=== PATIENT | female | born 1995 | race Two or more races ===

== ENCOUNTER 2020-11-12 21:32 | Emergency (ER) | payer OTHER, MEDICAID ==
[2020-11-12 22:10] LABS: BASOPHILS % (AUTO) 0.3 %; EOSINOPHILS # (AUTO) 0.2 10^3/uL (0.0-0.7); EOSINOPHILS % (AUTO) 1.6 %; HCT - HEMATOCRIT 38.6 % (37.0-47.0); HGB - HEMOGLOBIN 12.9 g/dL (12.0-16.0); LYMPHOCYTES # (AUTO) 2.8 10^3/uL (1.5-3.5); LYMPHOCYTES % (AUTO) 24.6 %; MEAN CORPUSCULAR HGB CONC 33.4 g/dL (32.0-36.0); MEAN CORPUSCULAR VOLUME 92.8 fL (81.0-99.0); MEAN PLATELET VOLUME 8.6 fL (7.9-10.8); MONOCYTES # (AUTO) 0.6 10^3/uL (0.0-1.0); MONOCYTES % (AUTO) 4.9 %; NEUTROPHILS # (AUTO) 7.7 10^3/uL (1.5-6.6); NEUTROPHILS % (AUTO) 68.2 %; PLT - PLATELET COUNT 250 10^3/uL (130-450); RED BLOOD COUNT 4.16 10^6/uL (4.20-5.40); WHITE BLOOD COUNT 11.3 x10^3/uL (4.8-10.8)
[2020-11-12 22:23] LABS: ALBUMIN 4.3 g/dL (3.2-5.5); ALBUMIN/GLOBULIN RATIO 1.5 (1.0-2.2); BILIRUBIN,TOTAL 0.6 mg/dL (0.2-1.0); CALCIUM 9.5 mg/dL (8.5-10.3); CREATININE 0.6 mg/dL (0.4-1.0); POTASSIUM 3.8 mmol/L (3.5-5.0); TOTAL PROTEIN 7.2 g/dL (6.7-8.2)
[2020-11-13 00:55] LABS: BILIRUBIN,URINE NEGATIVE (NEGATIVE); GLUCOSE, URINE (UA) NEGATIVE (NEGATIVE); KETONES,URINE (UA) NEGATIVE (NEGATIVE); LEUKOCYTE ESTERASE, URINE NEGATIVE (NEGATIVE); NITRITE,URINE NEGATIVE (NEGATIVE); OCCULT BLOOD,URINE NEGATIVE (NEGATIVE); PROTEIN,URINE NEGATIVE (NEGATIVE); UROBILINOGEN,URINE 0.2 (NORMAL) E.U./dL (NORMAL)
[2020-11-13 01:02] LABS: CLARITY,URINE CLEAR (CLEAR); RBC,URINE 0-5 /HPF (0-5); WBC,URINE 0-3 /HPF (0-5)
[2020-11-13 01:03] LABS: BACTERIA,URINE Rare /HPF (None Seen); SQUAMOUS EPITHELIAL CELL,UR FEW Squamous (<= Few)
[2020-11-13 02:27] VITALS: BP 118/83
--- NOTE | 2020-11-13 06:58 | ED Physician Documentation ---
History of Present Illness - Stated complaint Stated Complaint: BLEED/10 WEEKS - Chief complaint Chief Complaint: Abd Pain - History obtained from History obtained from: Patient - Additonal information Additional information: 25-year-old woman, history of type 2 diabetes, at 10 weeks gestational age, presents with brownish discharge today and lower abdominal twinging. She is O+ blood type. Denies urinary symptoms, back pain, fever chills. Review of Systems Ten Systems: 10 systems reviewed and negative Constitutional: denies: Fever, Chills, Myalgias GI: reports: Abdominal Pain, Nausea. denies: Vomiting : denies: Dysuria, Hesitancy Musculoskeletal: denies: Back pain PD PAST MEDICAL HISTORY - Allergies Allergies/Adverse Reactions: Allergies Allergy/AdvReac Type Severity Reaction Status Date / Time No Known Drug Allergies Allergy Verified 11/12/20 21:44 - Social History Does the pt smoke?: No Smoking Status: Never smoker PD ED PE NORMAL - Vitals Vital signs reviewed: Yes - General General: Alert and oriented X 3, No acute distress, Well developed/nourished - HEENT HEENT: Atraumatic, PERRL, EOMI - Neck Neck: Supple, no meningeal sign - Cardiac Cardiac: RRR - Respiratory Respiratory: No respiratory distress, Clear bilaterally - Abdomen Abdomen: Non tender, Non distended - Female Female : 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 Mild erythema to endocervix. Cervix closed. No CMT or adnexal tenderness) - Back Back: No CVA TTP - Derm Derm: Normal color, Warm and dry - Extremities Extremities: No deformity - Neuro Neuro: Alert and oriented X 3 - Psych Psych: Normal mood, Normal affect Results - Vitals Vitals: Vital Signs - 24 hr 11/12/20 11/13/20 21:40 02:25 Temperature 36.0 C L 36.2 C L Heart Rate 93 83 Respiratory 16 16 Rate Blood Pressure 135/84 H 118/83 H O2 Saturation 100 100 Oxygen O2 Source Room air - Labs Labs: Laboratory Tests 11/12/20 11/12/20 11/12/20 22:03 22:03 22:03 WBC 11.3 H RBC 4.16 L Hgb 12.9 Hct 38.6 MCV 92.8 MCH 31.0 MCHC 33.4 RDW 12.0 Plt Count 250 MPV 8.6 Neut # (Auto) 7.7 H Lymph # (Auto) 2.8 [place] # (Auto) 0.6 Eos # (Auto) 0.2 Baso # (Auto) 0.0 Absolute Nucleated RBC 0.00 Nucleated RBC % 0.0 Sodium 136 Potassium 3.8 Chloride 103 Carbon Dioxide 25 Anion Gap 8.0 BUN 9 Creatinine 0.6 Estimated GFR (MDRD) 123 Glucose 126 H Calcium 9.5 Total Bilirubin 0.6 AST 20 ALT 34 Alkaline Phosphatase 50 Total Protein 7.2 Albumin 4.3 Globulin 2.9 Albumin/Globulin Ratio 1.5 Lipase 26 HCG, Quant 004703.00 Urine Color Urine Clarity Urine pH Ur Specific [place] Urine Protein Urine Glucose (UA) Urine Ketones Urine Occult Blood Urine Nitrite Urine Bilirubin Urine Urobilinogen Ur Leukocyte Esterase Urine RBC Urine WBC Ur Squamous Epith Cells Urine Bacteria Urine Culture Comments 11/13/20 00:28 WBC RBC Hgb Hct MCV MCH MCHC RDW Plt Count MPV Neut # (Auto) Lymph # (Auto) [place] # (Auto) Eos # (Auto) Baso # (Auto) Absolute Nucleated RBC Nucleated RBC % Sodium Potassium Chloride Carbon Dioxide Anion Gap BUN Creatinine Estimated GFR (MDRD) Glucose Calcium Total Bilirubin AST ALT Alkaline Phosphatase Total Protein Albumin Globulin Albumin/Globulin Ratio Lipase HCG, Quant Urine Color YELLOW Urine Clarity CLEAR Urine pH 6.0 Ur Specific [place] 1.025 Urine Protein NEGATIVE Urine Glucose (UA) NEGATIVE Urine Ketones NEGATIVE Urine Occult Blood NEGATIVE Urine Nitrite NEGATIVE Urine Bilirubin NEGATIVE Urine Urobilinogen 0.2 (NORMAL) Ur Leukocyte Esterase NEGATIVE Urine RBC 0-5 Urine WBC 0-3 Ur Squamous Epith Cells FEW Squamous Urine Bacteria Rare Urine Culture Comments NOT INDICATED PD MEDICAL DECISION MAKING - ED course ED course: 25-year-old woman presents with brownish discharge that she was concerned was blood. She had a normal ultrasound and normal physical exam with closed cervix. Reassurance given and return precautions given. Patient will follow up with her LABORATORY CUREMAN. Departure - Departure Disposition: 01 Home, Self Care Clinical Impression: Vaginal spotting Condition: Good Instructions: Bleeding Early Preg Comments: You were seen in the emergency department for evaluation of brownish discharge in early . Your lab work, urine, and ultrasound were normal. You should follow-up with your LABORATORY CUREMAN. Return to the emergency department if you have any new or worsening symptoms or other concerns. Discharge Date/Time: 11/13/20 02:27
--- NOTE | 2020-11-13 08:37 | Ultrasound Report ---
PROCEDURE: OB First Trimester INDICATIONS: VB IN FIRST TRIMESTER OUTSIDE/PRIOR DATING DATA: Last menstrual period (LMP): 09/01/2020. LMP-based estimated date of delivery (KASSY): 06/08/2021. First dating scan (date and location): 11/12/2020, this study. Estimated date of delivery (KASSY) from first dating scan: 06/09/2021, +/- 5 days. The below data below was generated using the above KASSY of 06/09/2021 TECHNIQUE: Real-time scanning was performed of the fetus and maternal pelvic organs, with image documentation. COMPARISON: None FINDINGS: There is a single living intrauterine gestation with crown-rump length of 3.3 cm which cor relates with a gestational age of 10 weeks 1 day, +/- 5 days. cardiac activity at 176 bpm is ob served. Embryo: No perigestational hemorrhage. Heart rate: 1 76 bpm. Measurement variability in dating: +/- 4 weeks by LMP, +/- 7 days by mean sac diameter (use before 6 weeks gestation if crown-rump length not able to be measured), +/- 5 days by crown-rump length (6-12 weeks gestation). Maternal organs: Ovaries corpus luteum cyst on the right.. IMPRESSION: Living intrauterine gestation, 10 week 1 day gestational age with delivery date projected to be cente red on 06/09/2021. A definite source of vaginal bleeding is not identified. The patient declined trans vaginal scanning which reduces quality of visualization for detection of small perigestational hemorr jose. Reviewed by: Sukumar Chatterjee MD on 11/13/2020 8:36 AM PDT Approved by: Sukumar Chatterjee MD on 11/13/2020 8:36 AM PDT Station ID: [id number]
== END 2020-11-13 02:27 | disposition home or self-care (01) ==
LOC: ED 21:32
DX: O26.851 Spotting complicating pregnancy, first trimester (principal); Z3A.10 10 weeks gestation of pregnancy
CPT/HCPCS: 36415; 80053; 81001; 83690; 84702; 85025; 87086; 99282; 99284

== ENCOUNTER 2020-11-28 18:47 | Emergency (ER) | payer OTHER, MEDICAID ==
[2020-11-28 19:19] LABS: BASOPHILS % (AUTO) 0.2 %; EOSINOPHILS # (AUTO) 0.1 10^3/uL (0.0-0.7); EOSINOPHILS % (AUTO) 1.2 %; HGB - HEMOGLOBIN 13.3 g/dL (12.0-16.0); LYMPHOCYTES # (AUTO) 2.9 10^3/uL (1.5-3.5); LYMPHOCYTES % (AUTO) 24.4 %; MEAN CORPUSCULAR HGB CONC 34.1 g/dL (32.0-36.0); MEAN CORPUSCULAR VOLUME 90.9 fL (81.0-99.0); MONOCYTES # (AUTO) 0.5 10^3/uL (0.0-1.0); MONOCYTES % (AUTO) 4.2 %; NEUTROPHILS # (AUTO) 8.3 10^3/uL (1.5-6.6); NEUTROPHILS % (AUTO) 69.7 %; PLT - PLATELET COUNT 261 10^3/uL (130-450); RED BLOOD COUNT 4.29 10^6/uL (4.20-5.40); RED CELL DISTRIBUTION WIDTH 11.9 % (12.0-15.0); WHITE BLOOD COUNT 11.8 x10^3/uL (4.8-10.8)
[2020-11-28 19:26] LABS: CALCIUM 9.2 mg/dL (8.5-10.3); CREATININE 0.5 mg/dL (0.4-1.0); POTASSIUM 3.2 mmol/L (3.5-5.0)
[2020-11-28 19:27] LABS: BILIRUBIN,URINE NEGATIVE (NEGATIVE); GLUCOSE, URINE (UA) 250 mg/dL (NEGATIVE); KETONES,URINE (UA) TRACE mg/dL (NEGATIVE); LEUKOCYTE ESTERASE, URINE NEGATIVE (NEGATIVE); NITRITE,URINE NEGATIVE (NEGATIVE); OCCULT BLOOD,URINE NEGATIVE (NEGATIVE); PH,URINE 5.5 PH (5.0-7.5); PROTEIN,URINE NEGATIVE (NEGATIVE); UROBILINOGEN,URINE 0.2 (NORMAL) E.U./dL (NORMAL)
[2020-11-28 19:30] LABS: CLARITY,URINE HAZY (CLEAR)
--- NOTE | 2020-11-28 19:36 | ED Physician Documentation ---
History of Present Illness - Stated complaint Stated Complaint: LOW ABD PX - Chief complaint Chief Complaint: Abd Pain - Additonal information Additional information: 25-year-old female presents the emergency department for evaluation of acute left lower quadrant abdominal/pelvic pain. She is reportedly approximately 12 weeks LMP 09/01/2020. G1, P0. She reports that she has had a rough week because her puppy and she thinks that this may be the cause of her lower pelvic pain. She is also reporting some constipation. She denies vaginal bleeding or loss of fluids. She has had an ultrasound that does confirm an IUP. She is being followed by [facility] for this . Denies any pertinent past medical history. No urinary symptoms. Review of Systems Constitutional: reports: Reviewed and negative Ears: reports: Reviewed and negative Nose: reports: Reviewed and negative Throat: reports: Reviewed and negative Cardiac: reports: Reviewed and negative Respiratory: reports: Reviewed and negative GI: reports: Abdominal Pain, Nausea. denies: Vomiting : denies: Dysuria, Frequency, Hesitancy Skin: reports: Reviewed and negative Musculoskeletal: reports: Reviewed and negative PD PAST MEDICAL HISTORY - Present Medications Home Medications: Ambulatory Orders Medication Instructions Recorded Confirmed cephALEXin [Keflex] 500 mg PO BID #14 11/28/20 - Allergies Allergies/Adverse Reactions: Allergies Allergy/AdvReac Type Severity Reaction Status Date / Time No Known Drug Allergies Allergy Verified 11/28/20 18:55 - Social History Does the pt smoke?: No Smoking Status: Never smoker PD ED PE NORMAL - General General: Alert and oriented X 3, No acute distress - HEENT HEENT: PERRL - Neck Neck: Supple, no meningeal sign - Cardiac Cardiac: RRR, No murmur - Respiratory Respiratory: Clear bilaterally - Abdomen Abdomen: Normal bowel sounds, Soft, Non tender, Non distended - Back Back: No CVA TTP, No spinal TTP - Derm Derm: Normal color, Warm and dry, No rash - Extremities Extremities: No deformity - Neuro Neuro: Alert and oriented X 3, 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 Results - Vitals Vitals: Vital Signs - 24 hr 11/28/20 11/28/20 18:55 18:58 Temperature 36.5 C 36.4 C L Heart Rate 90 94 Respiratory 16 16 Rate Blood Pressure 144/87 H 132/82 H O2 Saturation 99 100 Oxygen O2 Source Room air - Labs Labs: Laboratory Tests 11/28/20 11/28/20 11/28/20 19:10 19:10 19:10 WBC 11.8 H RBC 4.29 Hgb 13.3 Hct 39.0 MCV 90.9 MCH 31.0 MCHC 34.1 RDW 11.9 L Plt Count 261 MPV 9.0 Neut # (Auto) 8.3 H Lymph # (Auto) 2.9 [place] # (Auto) 0.5 Eos # (Auto) 0.1 Baso # (Auto) 0.0 Absolute Nucleated RBC 0.00 Nucleated RBC % 0.0 Sodium 134 L Potassium 3.2 L Chloride 101 Carbon Dioxide 23 Anion Gap 10.0 BUN 6 Creatinine 0.5 Estimated GFR (MDRD) 152 Glucose 130 H Calcium 9.2 HCG, Quant 767434.00 Urine Color Urine Clarity Urine pH Ur Specific [place] Urine Protein Urine Glucose (UA) Urine Ketones Urine Occult Blood Urine Nitrite Urine Bilirubin Urine Urobilinogen Ur Leukocyte Esterase Urine RBC Urine WBC Ur Squamous Epith Cells Urine Crystals Urine Bacteria Urine Mucus Ur Microscopic Review Urine Culture Comments Blood Type 11/28/20 11/28/20 19:10 19:10 WBC RBC Hgb Hct MCV MCH MCHC RDW Plt Count MPV Neut # (Auto) Lymph # (Auto) [place] # (Auto) Eos # (Auto) Baso # (Auto) Absolute Nucleated RBC Nucleated RBC % Sodium Potassium Chloride Carbon Dioxide Anion Gap BUN Creatinine Estimated GFR (MDRD) Glucose Calcium HCG, Quant Urine Color YELLOW Urine Clarity HAZY Urine pH 5.5 Ur Specific [place] >=1.030 H Urine Protein NEGATIVE Urine Glucose (UA) 250 H Urine Ketones TRACE Urine Occult Blood NEGATIVE Urine Nitrite NEGATIVE Urine Bilirubin NEGATIVE Urine Urobilinogen 0.2 (NORMAL) Ur Leukocyte Esterase NEGATIVE Urine RBC 0-5 Urine WBC 0-3 Ur Squamous Epith Cells FEW Squamous Urine Crystals 3-5 Calcium Oxalate Urine Bacteria Moderate H Urine Mucus Moderate Strands Ur Microscopic Review INDICATED Urine Culture Comments NOT INDICATED Blood Type O POSITIVE - Rads (name of study) pelvic US Radiology: Final report received (12-week 5-day IUP with positive heart rate. Placental lakes are noted.) PD MEDICAL DECISION MAKING - ED course Complexity details: reviewed results, re-evaluated patient ED course: 25-year-old female who is just over 12 weeks presents for acute left lower pelvic abdominal pain. Though she has not had a bowel movement today she is concerned that this may be affecting her . Screening labs do not show any worrisome abnormalities though her blood glucose is a little elevated and there is glucosuria. Patient is scheduled to see her OB on Wednesday. I have discussed that they likely need sooner rather than later glucose checks. No dysuria but moderate bacteria in the urine. Will start patient on Keflex. Ultrasound today shows an IUP at 12 weeks 5 days with good heart rate. Continue follow-up with OB at [facility]. Departure - Departure Disposition: Home, Self Care Clinical Impression: Left lower quadrant abdominal pain, with 12 completed weeks gestation, Bacteria in urine, Elevated glucose Condition: Stable Record reviewed to determine appropriate education?: Yes Prescriptions: cephALEXin [Keflex] 500 mg PO BID #14 Comments: You are seen today for lower pelvic pain. Your ultrasound today is essentially normal. Your baby is 12 weeks 5 days along. It has very good heart rate. Your blood glucose is a little elevated today it is 130 and you are spilling some glucose in your urine. Please discuss this with your OB on Wednesday. They may need to consider earlier rather than later maternal glucose testing. There is some bacteria in your urine though it does not look like you have a urinary tract infection. This is always treated in . Please fill the prescription for the Keflex and take twice daily as directed. Your lower pelvic pain may simply be constipation. This is normal in . Increase your hydration and you can take an [id number] stool softener such as Dulcolax, Colace or even take occasional MiraLAX. Return to the emergency department if you develop fevers, have vaginal bleeding, suddenly severe or different pelvic pain
[2020-11-28 19:39] LABS: RBC,URINE 0-5 /HPF (0-5); SQUAMOUS EPITHELIAL CELL,UR FEW Squamous (<= Few); WBC,URINE 0-3 /HPF (0-5)
[2020-11-28 19:40] LABS: BACTERIA,URINE Moderate /HPF (None Seen); CRYSTALS,URINE 3-5 Calcium Oxalate /LPF; MUCUS,URINE Moderate Strands
[2020-11-28 21:02] VITALS: BP 120/86
--- NOTE | 2020-11-28 21:08 | Ultrasound Report ---
PROCEDURE: OB First Trimester INDICATIONS: LLQ abd pain OUTSIDE/PRIOR DATING DATA: Last menstrual period (LMP): 09/01/2020. LMP-based estimated date of delivery (KASSY): 06/08/2021. First dating scan (date and location): 11/12/2020. Estimated date of delivery (KASSY) from first dating scan: 06/09/2021. The below data below was generated using the above KASSY of 06/09/2021 TECHNIQUE: Real-time scanning was performed of the fetus and maternal pelvic organs, with image documentation. COMPARISON: 11/12/2020 FINDINGS: Source of left lower quadrant pain is not identified. Embryo: Viable gestation. Note is made of a crown-rump length of 6.2 cm that correlates with a gesta tional age of 12 weeks 5 days, +/- 10 days. This shows appropriate interval growth from first OB ultr asound that would project current gestational age today of 12 weeks 3 days and the current study show s 12 weeks 5 days. Heart rate: 166 bpm Measurement variability in dating: +/- 4 weeks by LMP, +/- 7 days by mean sac diameter (use before 6 weeks gestation if crown-rump length not able to be measured), +/- 5 days by crown-rump length (6-12 weeks gestation). Maternal organs: Ovaries normal.. IMPRESSION: Appropriate interval growth with living intrauterine gestation and normal amniotic fluid volume. Sour ce of maternal left lower quadrant pain is not seen. Reviewed by: Sukumar Chatterjee MD on 11/28/2020 9:06 PM PDT Approved by: Sukumar Chatterjee MD on 11/28/2020 9:06 PM PDT Station ID: [id number]
== END 2020-11-28 21:02 | disposition home or self-care (01) ==
LOC: ED 18:47
DX: O99.810 Abnormal glucose complicating pregnancy (principal); O99.891 Other specified diseases and conditions complicating pregnancy; R10.32 Left lower quadrant pain; R82.71 Bacteriuria; Z3A.12 12 weeks gestation of pregnancy
CPT/HCPCS: 36415; 80048; 81001; 81003; 84702; 85025; 86900; 86901; 87086; 99284